=== PATIENT | male | born 1975 | race Hispanic/Latino ===

== ENCOUNTER 2016-10-07 14:55 | Observation (INO) | payer OTHER ==
[2016-10-07 14:55] VITALS: BMI 25.8
[2016-10-07] MEDS ORDERED: Sodium Chloride 0.9% 1,000 ML IV ONE (15:15)
[2016-10-07 15:25] LABS: BASO # 0.1 K/uL (0.0-0.2); BASO % 0.6 % (0.0-2.0); EOS % 0.1 % (0.0-4.0); HEMATOCRIT 44.4 % (35.0-51.0); LYMPH # 2.5 K/uL (1.0-4.3); LYMPH % 30.7 % (20.0-40.0); MEAN CELL VOLUME 87.6 fL (80.0-94.0); MEAN CORPUSCULAR HEMOGLOBIN 30.5 pg (27.0-31.0); MEAN CORPUSCULAR HGB CONC 34.9 g/dL (33.0-37.0); MEAN PLATELET VOLUME 7.8 fL (7.2-11.7); MONO # 0.5 K/uL (0.0-0.8); MONO % 5.8 % (0.0-10.0); RED CELL DISTRIBUTION WIDTH 12.9 % (11.5-14.5); WHITE BLOOD COUNT 8.2 K/uL (4.8-10.8)
[2016-10-07] MEDS ORDERED: Sodium Chloride 0.9% 1,000 ML ONE (15:25)
[2016-10-07] MEDS ORDERED: Multivitamin (MVI) 10 ML, Thiamine 100 MG, Folic Acid 1 MG in Sodium Chloride 0.9% 1,00... IV ONE ×2 (15:27)
[2016-10-07 15:35] LABS: CHLORIDE 95 mmol/L (98-107); POTASSIUM 3.8 mmol/L (3.6-5.2); SODIUM 133 mmol/L (132-148)
[2016-10-07 15:37] LABS: ALB/GLOB RATIO 2.2 (1.0-2.1); AMYLASE 61 U/L (30-110); AST/SGOT 57 U/L (17-59); BILIRUBIN,TOTAL 1.4 mg/dL (0.2-1.3); CARBON DIOXIDE 26 mmol/L (22-30); GFR AFRICAN-AMERICAN > 60; TOTAL PROTEIN 7.3 g/dL (6.3-8.3)
[2016-10-07 15:38] LABS: ALKALINE PHOSPHATASE 80 U/L (38-126); ALT/SGPT 70 U/L (21-72); BLOOD UREA NITROGEN 13 mg/dL (9-20); CALCIUM 8.8 mg/dl (8.6-10.4); GLUCOSE,RANDOM 128 mg/dL (75-110); INR 1.1
--- NOTE | 2016-10-07 15:39 | C.PDOC ---
History Of Present Illness 41-year-old male, PMHx includes EtOH Abuse, presents to the emergency department with complaints of nausea and multiple episodes of non-bloody/non- bilious vomiting since this morning, that is associated with tremors and facial numbness. Patient admits to drinking for past 3 days. States he is unable to tolerate PO at this time. Denies headache, vertigo, visual changes, focal deficits, neck pain, chest pain, shortness of breath, palpitation, dyspnea, diaphoresis, hematochezia, hematemesis, melena, back pain, or any other associated symptoms. Appears comfortable at present time, not in any apparent distress. Time Seen by Provider: 10/07/16 15:09 Chief Complaint (Nursing): GI Problem History Per: Patient History/Exam Limitations: no limitations Onset/Duration Of Symptoms: Hrs Current Symptoms Are (Timing): Still Present Severity: Moderate Past Medical History Reviewed: Historical Data, Nursing Documentation, Vital Signs Vital Signs: Last Vital Signs Temp 97.5 F L 10/07/16 18:01 Pulse 69 10/07/16 18:01 Resp 16 10/07/16 18:01 BP 135/84 10/07/16 18:01 Pulse Ox 98 10/07/16 18:46 - Medical History PMH: Denies: Chronic Kidney Disease - [facility] INJECT/INFUSE NEC (01/10/14) Family History: States: Unknown Family Hx, Diabetes (mother) - Social History Hx Alcohol Use: Yes Hx Substance Use: No - Immunization History Hx Influenza Vaccination: (not up to date) Hx Pneumococcal Vaccination: (not up to date) Review Of Systems Except As Marked, All Systems Reviewed And Found Negative. Constitutional: Negative for: Fever, Chills Cardiovascular: Negative for: Chest Pain, Palpitations Respiratory: Negative for: Shortness of Breath Gastrointestinal: Positive for: Nausea, Vomiting. Negative for: Diarrhea, Melena, Hematochezia, Hematemesis Musculoskeletal: Negative for: Back Pain Physical Exam - Physical Exam Appears: Non-toxic, No Acute Distress Skin: Warm, Dry, No Rash Head: Atraumatic, Normacephalic Eye(s): bilateral: PERRL Nose: No Flaring, No Discharge Oral Mucosa: Moist Lips: Normal Appearing Throat: Normal, No Erythema, No Exudate, No Drooling Neck: Trachea Midline, Supple Cardiovascular: Rhythm Regular Respiratory: No Accessory Muscle Use, No Stridor, No Wheezing Gastrointestinal/Abdominal: Soft, Tenderness (epigastric, mild.), No Distention , No Guarding, No Rebound Extremity: No Pedal Edema Extremity: Bilateral: Atraumatic Neurological/Psych: Oriented x3, Normal Speech, Other (B/L hands tremor noted.) ED Course And Treatment - Laboratory Results Result Diagrams: 10/07/16 15:23 10/07/16 15:23 ECG: Interpreted By Me, Viewed By Me ECG Rhythm: Sinus Rhythm ECG Interpretation: No Acute Changes Rate From EC O2 Sat by Pulse Oximetry: 98 Medical Decision Making Medical Decision Making: Plan: * EKG * CMP, Lipase, Amylase * CBC, PTT, PT * Ativan, Banana Bag IV, Pepcid * Urinalysis * Reassess and Disposition ED OBSERVATION Discharge: Yes Date of observation admission: 10/07/16 Time of observation admission: 15:15 - Observation admission statement Patient is being placed in observation because:: Alcohol intoxication w/o withdrawal - Goals of Observation Goals of observation are:: Diagnostics, sx tx, neuro re-eval, sobriety - Progress Note Progress Note: 10/07/16 At 16:10, pt resting comfortably in bed, not in any apparent distress. Afebrile, hemodynamicaly stable. Neurologicaly intact. Hydration, Banana bag. At 17:30, pt is awake, reports moderate improvement in symptoms with ED treatment. Afebrile, hemodynamicaly stable. Non-toxic. ENT: no acute findings Abd: benign. Neurologicaly intact. Diagnostics review and appears without acute abnormalities, LFT- normal, amylase /lipase- normal. At 18:55, pt admits " feels much better" and wish to be discharge home. Diagnostics and clinical findings discussed with pt. Pt has clinical findings c/ w alcohol abuse r/o alcohol withdrawal. Admission to medical floor with further psych consult/detox offered to patient, refused at present time. At present time, pt is Afebrile, hemodynamicaly stable. Non-toxic. Tolerate Po well in ED. Ambulatory in ED with stable gait. ENT: no acute findings Lungs: CTA B/L, BS equal B/L CVS: (+)S1S2, reg. Abd: benign, (-) guarding, (-) rebound, (-) localized tenderness. Neurologicaly intact. Pt was advised and ref. to F/u with PMD, Detox in 1-2 days for re-eval. return to ED if any worsening or new changes. Disposition Counseled Patient/Family Regarding: Studies Performed, Diagnosis, Need For Followup, Rx Given - Disposition Disposition: HOME/ ROUTINE Disposition Time: 19:00 Condition: STABLE - Clinical Impression Clinical Impression: Alcohol intoxication, Alcohol withdrawal - Scribe Statement The provider has reviewed the documentation as recorded by the Peggy Florence All medical record entries made by the Peggy were at my direction and personally dictated by me. I have reviewed the chart and agree that the record accurately reflects my personal performance of the history, physical exam, medical decision making, and the department course for this patient. I have also personally directed, reviewed, and agree with the discharge instructions and disposition.
[2016-10-07 16:30] LABS: RBC URINE 4 /hpf (0-3); URINE BILIRUBIN NEGATIVE (NEGATIVE); URINE BLOOD 1+ (NEGATIVE); URINE COLOR Yellow (YELLOW); URINE GLUCOSE (UA) NORMAL (Normal); URINE KETONE NEGATIVE (NEGATIVE); URINE LEUKOCYTE ESTERASE NEG Leu/uL (Negative); URINE PROTEIN NEGATIVE (NEGATIVE); URINE UROBILINOGEN NORMAL mg/dL (0.2-1.0); WBC URINE < 1 /hpf (0-5)
[2016-10-07 17:37] LABS: ALCOHOL SERUM 23 mg/dl (0-10)
[2016-10-07 18:02] VITALS: BP 135/84; PULSE 69; RESP 16; TEMP 97.5; O2SAT 98
--- NOTE | 2016-10-12 15:05 | CARD ---
APPROVED REPORT EKG Measurement Heart [id number] ID [id number] <Conclusion> Poor data quality, interpretation may be adversely affected Normal sinus rhythm Normal ECG
== END 2016-10-07 18:55 | disposition home or self-care (01) ==
LOC: C.ER 14:55 → C.9OBSV 15:15
PROVIDERS: ADMIT Student in an Organized Health Care Education/Training Program; ATTEND Student in an Organized Health Care Education/Training Program
DX: F10.239 Alcohol dependence with withdrawal, unspecified (principal); F10.229 Alcohol dependence with intoxication, unspecified
CPT/HCPCS: 80053; 80320; 81001; 82150; 83690; 85025; 85610; 85730; 93005; 96361; 96375; 96376; 99284; C9113; G0378; J2060; J2405; J3411; J7040